=== PATIENT | male | born 1960 | race Hispanic/Latino ===

== ENCOUNTER 2017-10-09 18:03 | Inpatient (IN) | payer MEDICARE ==
[~2017-10-09] VITALS: Ht 165.1 cm; Wt 71.5 kg
[2017-10-09 18:58] LABS: BASOPHILS # (AUTO) 0.1 (0.0-0.1); BASOPHILS % 0.3 % (0.0-1.0); EOSINOPHILS # (AUTO) 0.1 (0.0-0.4); EOSINOPHILS % 0.3 % (0.0-6.0); HEMATOCRIT 28.6 % (38.2-49.6); HEMOGLOBIN 10.1 g/dL (14.0-18.0); LYMPHOCYTES # (AUTO) 1.4 (1.0-3.2); LYMPHOCYTES % 9.8 % (18.0-39.1); MEAN CORPUSCULAR HEMOGLOBIN 31.4 pg (28-32); MEAN CORPUSCULAR HGB CONC 35.3 g/dL (31-35); MEAN CORPUSCULAR VOLUME 88.8 fL (81-99); MONOCYTES # (AUTO) 1.4 (0.2-0.8); MONOCYTES % 9.7 % (4.4-11.3); NEUTROPHILS # (AUTO) 11.7 (2.1-6.9); NEUTROPHILS % 79.6 % (38.7-80.0); PLATELET COUNT 248 x10e3/uL (140-360); RED BLOOD COUNT 3.22 x10e6/uL (4.3-5.7); RED CELL DISTRIBUTION WIDTH 12.5 % (11.7-14.4)
[2017-10-09 19:19] LABS: ALBUMIN 3.2 g/dL (3.5-5.0); ALBUMIN/GLOBULIN RATIO 0.8 (0.8-2.0); ANION GAP 14.6 mmol/L (8-16); CALCIUM 8.7 mg/dL (8.4-10.2); CREATININE, SERUM 3.01 mg/dL (0.72-1.25); POTASSIUM 3.6 mmol/L (3.5-5.1)
[2017-10-09] MEDS ORDERED: BUPIVACAINE HCL 0.5% 10ML MPF VIAL INJ ONE (19:45)
[2017-10-09] MEDS ORDERED: VANCOMYCIN 500MG/NS 0.9% 100ML 100 ML IV STA (20:14)
[2017-10-09] MEDS ORDERED: DEXTROSE 50% SYRINGE 50 ML IV PRN (20:45)
[2017-10-09] MEDS: PIPERACILLIN/TAZO 2.25 GM 50 ML IV SCH (21:09)
[2017-10-09] MEDS: INSULIN REGULAR, HUMAN 100 UNIT/1 ML 3ML VIAL SQ SCH (21:09)
[2017-10-09 21:32] LABS: BODY FLUID COLOR RED; BODY FLUID TYPE SYNOVIAL
[2017-10-09 21:35] LABS: BODY FLUID APPEARANCE CLOUDY; RBC,BODY FLUID 2860 cells/uL; WBC,BODY FLUID 110 cells/uL
[2017-10-09 22:05] LABS: LYMPHOCYTES,BODY FLUID 14 %; MONO/MACROPHG,BODY FLUID 9 %; NEUTROPHILS,BODY FLUID 77 %
[2017-10-09] MEDS ORDERED: NIFEDIPINE10 MG PO (22:19)
[2017-10-09] MEDS ORDERED: TOPROL XL25 MG PO (22:19)
[2017-10-09] MEDS ORDERED: ASPIR 8181 MG (22:20)
[2017-10-09] MEDS ORDERED: ATORVASTATIN CA10 MG PO (22:20)
[2017-10-09] MEDS ORDERED: NOVALIN (22:24)
[2017-10-09] MEDS ORDERED: SODIUM CHLORIDE 0.9% 250ML 250 ML ONE (23:27)
[2017-10-09] MEDS ORDERED: VANCOMYCIN 1GM/NS 250 ML 250 ML ONE (23:28)
[2017-10-10] MEDS: MORPHINE SULFATE 2 MG/ML SYR IV PRN ×4 (04:38→20:38)
[2017-10-10] MEDS: ONDANSETRON HCL INJ 2 MG/ML VIAL IV PRN ×2 (04:38→20:38)
[2017-10-10 04:56] LABS: BASOPHILS # (AUTO) 0.1 (0.0-0.1); BASOPHILS % 0.4 % (0.0-1.0); EOSINOPHILS # (AUTO) 0.1 (0.0-0.4); EOSINOPHILS % 0.4 % (0.0-6.0); HEMATOCRIT 27.3 % (38.2-49.6); HEMOGLOBIN 9.8 g/dL (14.0-18.0); LYMPHOCYTES # (AUTO) 1.8 (1.0-3.2); LYMPHOCYTES % 12.4 % (18.0-39.1); MEAN CORPUSCULAR HEMOGLOBIN 31.5 pg (28-32); MEAN CORPUSCULAR HGB CONC 35.9 g/dL (31-35); MEAN CORPUSCULAR VOLUME 87.8 fL (81-99); MONOCYTES # (AUTO) 1.5 (0.2-0.8); MONOCYTES % 10.9 % (4.4-11.3); NEUTROPHILS # (AUTO) 10.7 (2.1-6.9); NEUTROPHILS % 75.6 % (38.7-80.0); PLATELET COUNT 235 x10e3/uL (140-360); RED BLOOD COUNT 3.11 x10e6/uL (4.3-5.7); RED CELL DISTRIBUTION WIDTH 12.4 % (11.7-14.4)
[2017-10-10 05:11] LABS: ALBUMIN 2.9 g/dL (3.5-5.0); ALBUMIN/GLOBULIN RATIO 0.7 (0.8-2.0); ANION GAP 14.5 mmol/L (8-16); CALCIUM 8.9 mg/dL (8.4-10.2); CREATININE, SERUM 2.94 mg/dL (0.72-1.25); POTASSIUM 3.5 mmol/L (3.5-5.1)
[2017-10-10] MEDS: INSULIN REGULAR, HUMAN 100 UNIT/1 ML 3ML VIAL SQ SCH ×4 (08:09→20:36)
[2017-10-10] MEDS: METOPROLOL SUCCINATE 25 MG TAB XL PO SCH (08:50)
[2017-10-10] MEDS: PIPERACILLIN/TAZO 2.25 GM 50 ML IV SCH ×2 (08:50→20:35)
[2017-10-10] MEDS: NIFEDIPINE 10 MG CAP PO SCH ×3 (08:50→20:36)
--- NOTE | 2017-10-10 09:11 | History and Physical ---
CHIEF COMPLAINT: Patient comes in with right elbow bursitis and tenderness and pain. HISTORY OF PRESENTING ILLNESS: This is Mr. Nick Maurice who has had elbow bursitis for the last 6 months, had it drained initially in the clinic and the patient did better for about 2 months, and yesterday the patient went out deep sea fishing and apparently hit the area and came into the emergency room with tenderness and increased erythema and pain on extension and flexion of the elbow. Was drained and admitted for IV antibiotics. PAST MEDICAL HISTORY: History of diabetes mellitus, history of diabetic retinopathy, history of hypertension, history of hyperlipidemia, and a history of blindness and retinopathy. SURGICAL HISTORY: Noncontributory. SOCIAL HISTORY: No ETOH. No IV drug abuse at this time. REVIEW OF SYSTEMS: Negative for chest pain. No shortness of breath. No nausea, vomiting, diarrhea. No constipation, no rectal bleeding. No hematochezia, no hematemesis either. PHYSICAL EXAMINATION GENERAL: Patient is alert and oriented x3. HEENT: Normocephalic, atraumatic. Patient is blind. ABDOMEN: Nontender, nondistended. LUNGS: Clear to auscultation. CARDIOVASCULAR: S1 and S2 normal. Regular rhythm. EXTREMITIES: Right elbow with tenderness and erythema. Swelling down after the drain. Extremities, no edema. LABORATORY VALUES: White count was 14,000, hemoglobin of 10.1 and hematocrit of 28.6. Chemistry: Sodium 130, BUN was 47, creatinine was 3.01, glucose of 208. Anion gap was 14.5. Patient's synovial fluid has been sent. WBC count was 110. PLAN: The patient has been started on Zosyn, and a gram of vancomycin has been given. A consult with Dr. Diop done. Will continue to monitor the patient. Also, an ID consult will be done for septic arthritis and bursitis. Further recommendations on clinical course. Will also wait for the cultures on the synovial fluid. Continue medications of home medicines and will also monitor his acute kidney injury. Patient has a baseline history of CKD. Will continue to monitor the patient's labs and also consult the 2 consultants. Job#: [id number] EV
[2017-10-10 16:33] VITALS: BP 134/73
[2017-10-10 16:35] VITALS: BP 134/73
[2017-10-10] MEDS: LINEZOLID 600 MG/D5W 300ML 300 ML IV SCH (16:44)
--- NOTE | 2017-10-10 17:48 | Consultation ---
DATE OF CONSULTATION: October 10, 2017 REASON FOR CONSULTATION: Right elbow cellulitis infection. HISTORY OF PRESENT ILLNESS: This patient is a 57-year-old gentleman with history of diabetes mellitus, history of retinopathy, hypertension, hyperlipidemia, chronic kidney disease. The patient comes in with redness and swelling of his elbow. The patient is denies any history of trauma, but he said he was on the boat fishing and it was a rough ride. He does not remember specific trauma. He is coming with redness and swelling of his elbow. Apparently it was aspirated and sent for cultures. I do not have the results. The patient is complaining of pain in the elbow. The patient is telling me that back in August he had inflammation and infection in his joints and he saw Dr. Parekh and he was given antibiotic with improvement. Now, he is coming with this new complaint. The patient is currently in the emergency room. He was seen and examined. at the bedside. PAST MEDICAL HISTORY: Diabetes mellitus, hypertension, chronic kidney disease, hyperlipidemia, blind and retinopathy. PAST SURGICAL HISTORY: Denies. ALLERGIES: NKA. SOCIAL HISTORY: Does not smoke, no drug abuse, no alcohol abuse. FAMILY HISTORY: Hypertension. REVIEW OF SYSTEMS: HEENT: There is no headache, visual changes or hearing changes. GI: There is no nausea and no vomiting. No diarrhea. CARDIAC: There is no arrhythmia. NEUROLOGIC: No seizure activity. SKIN: No rash. LABORATORY DATA: Reviewed. Gram stain of the fluid showed many WBCs but no organism. WBCs 110, RBCs 2860. His sodium 133, potassium 3.5 and creatinine 2.94. PHYSICAL EXAMINATION: GENERAL: Alert and oriented and does not seem to be in acute distress. VITAL SIGNS: Stable, currently afebrile. HEENT: Not icteric. NECK: Supple. No JVD. No thyromegaly. CHEST: Clear bilaterally. HEART: S1 and S2. No S3, S4 or murmur. ABDOMEN: Soft. Bowel sounds present. No tenderness. No hepatosplenomegaly. EXTREMITIES: No edema. On the right elbow, there is erythema and induration. IMPRESSION: 1. Bursitis. 2. Chronic kidney disease. 3. Hypertension. 4. Diabetes. RECOMMENDATIONS: Agree with Zosyn. Will add Zyvox in a patient with chronic kidney disease. Ortho evaluation has been ordered. Will follow. Job#: [id number] GH
[2017-10-10] MEDS ORDERED: SODIUM CHLORIDE 0.9% 250ML 250 ML ONE (20:14)
[2017-10-10 20:16] VITALS: BP 143/78
[2017-10-10] MEDS: ATORVASTATIN 10 MG TAB PO SCH (20:35)
[2017-10-11] VITALS (8 sets, daily range): BP systolic 132–156; BP diastolic 64–88
[2017-10-11] MEDS: ONDANSETRON HCL INJ 2 MG/ML VIAL IV PRN ×3 (00:33→09:05)
[2017-10-11] MEDS: MORPHINE SULFATE 2 MG/ML SYR IV PRN ×2 (00:33→04:31)
[2017-10-11] MEDS: LINEZOLID 600 MG/D5W 300ML 300 ML IV SCH ×2 (04:30→16:41)
[2017-10-11 05:59] LABS: BASOPHILS % 0.3 % (0.0-1.0); EOSINOPHILS % 0.2 % (0.0-6.0); HEMATOCRIT 25.2 % (38.2-49.6); HEMOGLOBIN 8.9 g/dL (14.0-18.0); LYMPHOCYTES # (AUTO) 1.3 (1.0-3.2); LYMPHOCYTES % 9.2 % (18.0-39.1); MEAN CORPUSCULAR HEMOGLOBIN 31.6 pg (28-32); MEAN CORPUSCULAR HGB CONC 35.3 g/dL (31-35); MEAN CORPUSCULAR VOLUME 89.4 fL (81-99); MONOCYTES # (AUTO) 1.7 (0.2-0.8); MONOCYTES % 11.6 % (4.4-11.3); NEUTROPHILS # (AUTO) 11.2 (2.1-6.9); NEUTROPHILS % 78.1 % (38.7-80.0); PLATELET COUNT 225 x10e3/uL (140-360); RED BLOOD COUNT 2.82 x10e6/uL (4.3-5.7)
[2017-10-11 06:22] LABS: ANION GAP 14.8 mmol/L (8-16); CALCIUM 8.6 mg/dL (8.4-10.2); CREATININE, SERUM 3.44 mg/dL (0.72-1.25); POTASSIUM 3.8 mmol/L (3.5-5.1)
[2017-10-11] MEDS ORDERED: ACETAMINOPHEN 325 MG TAB PO PRN (06:45)
[2017-10-11] MEDS ORDERED: MORPHINE SULFATE INJ 4 MG/ML INJ IV PRN ×2 (07:00→08:30)
[2017-10-11] MEDS: HYDROMORPHONE 2MG/ML 2 MG/ML ML IV PRN (07:27)
[2017-10-11] MEDS: INSULIN REGULAR, HUMAN 100 UNIT/1 ML 3ML VIAL SQ SCH ×4 (07:30→21:06)
[2017-10-11 07:34] LABS: LYMPHOCYTES % (MANUAL) 4 % (19-48); MONOCYTES % (MANUAL) 12 % (3.4-9.0); NEUTROPHILS % (MANUAL) 83 % (40-74); PLATELET MORPHOLOGY COMMENT NORMAL
[2017-10-11 07:35] LABS: PLATELET ESTIMATE ADEQUATE; RBC MORPHOLOGY COMMENT NORMAL
[2017-10-11 07:36] LABS: ANISOCYTOSIS SLIGHT; HYPOCHROMASIA SLIG
[2017-10-11] MEDS: PIPERACILLIN/TAZO 2.25 GM 50 ML IV SCH ×2 (08:53→21:05)
[2017-10-11] MEDS: METOPROLOL SUCCINATE 25 MG TAB XL PO SCH (08:53)
[2017-10-11] MEDS: NIFEDIPINE 10 MG CAP PO SCH ×3 (08:53→21:04)
--- NOTE | 2017-10-11 12:28 | Diagnostic Imaging Report ---
TECHNIQUE: Magnetic resonance imaging of the RIGHT ELBOW was performed WITHOUT injected contrast. HISTORY: Pain COMPARISON: None available. FINDINGS: Ligaments and tendons: The medial and lateral collateral ligament complexes are intact. Tendinosis of the common extensor and flexor origins with thickening, no tear. Insertional tendinosis of the triceps tendon with olecranon enthesophyte. The distal biceps tendon, and brachialis tendons are intact. Ulnar nerve: Normal, and in groove. Bone and bone marrow: Mild bone marrow edema within the posterior olecranon. Mild T1 signal change axial image 17. No acute fracture. Articular cartilage: No focal lesions are seen. Joint effusion, likely reactive. Soft tissues: Complex olecranon bursitis with surrounding edema and inflammation. IMPRESSION: Olecranon bursitis, likely infected with surrounding cellulitis. Marrow edema and mild T1 signal change in the olecranon may reflect developing osteomyelitis. Signed by: Dr. Favio Car M.D. on 10/11/2017 12:25 PM
--- NOTE | 2017-10-11 20:12 | Progress Note ---
DATE: October 11, 2017 Mr. Woodward is doing better. There are no new complaints. His laboratory data reviewed. An MRI of the elbow shows there is bursitis, cellulitis and osteomyelitis. Discussed with ortho that he needs 6-8 weeks or IV antibiotics. He has chronic kidney disease. Will consult renal. Will keep him on same antibiotics. Will see about outpatient IV antibiotics and will follow with you. Job#: [id number]
[2017-10-11] MEDS: ATORVASTATIN 10 MG TAB PO SCH (21:04)
[2017-10-12] VITALS (8 sets, daily range): BP systolic 133–162; BP diastolic 59–85
[2017-10-12] MEDS: ONDANSETRON HCL INJ 2 MG/ML VIAL IV PRN ×2 (04:45→21:46)
[2017-10-12] MEDS: HYDROMORPHONE 2MG/ML 2 MG/ML ML IV PRN ×2 (04:47→21:48)
[2017-10-12] MEDS: LINEZOLID 600 MG/D5W 300ML 300 ML IV SCH ×2 (04:51→16:51)
[2017-10-12 05:36] LABS: INR 1.32; PROTHROMBIN TIME 15.4 seconds (11.9-14.5)
[2017-10-12 05:37] LABS: PARTIAL THROMBOPLASTIN TIME 40.1 seconds (23.8-35.5)
[2017-10-12] MEDS: INSULIN REGULAR, HUMAN 100 UNIT/1 ML 3ML VIAL SQ SCH ×5 (07:30→21:28)
[2017-10-12] MEDS: PIPERACILLIN/TAZO 2.25 GM 50 ML IV SCH ×2 (09:17→21:27)
[2017-10-12] MEDS: METOPROLOL SUCCINATE 25 MG TAB XL PO SCH (09:17)
[2017-10-12] MEDS: NIFEDIPINE 10 MG CAP PO SCH ×3 (09:17→21:26)
--- NOTE | 2017-10-12 12:22 | Diagnostic Imaging Report ---
PROCEDURE:US GUIDANCE FOR VASCULAR ACCESS COMPARISON:None. INDICATIONS:Central Line Placement FINDINGS:Ultrasound evaluation of potential access sites was performed. After successfully identifying a patent vessel, US guidance was used to puncture the vein. A permanent recording was created for the patient record. CONCLUSION:Successful IV access by Ultrasound guidance. Steven Robledo M.D. Dictated by: Steven Robledo M.D. on 10/12/2017 at 12:28 Electronically approved by: Steven Robledo M.D. on 10/12/2017 at 12:28
--- NOTE | 2017-10-12 14:19 | Diagnostic Imaging Report ---
PROCEDURE:NON-TUNNELLED CVC CATH PLACMNT COMPARISON:None. Preprocedure diagnosis: Bursitis, need for intravenous antibiotics Post procedure diagnosis: Bursitis, need for intravenous antibiotics COMPLICATIONS: None Sedation/anesthesia: None Additional medications: Lidocaine 1% local anesthesia Blood products administered: None Specimens: None Implants/grafts: 7 [place] 16 cm triple lumen central venous catheter BLOOD LOSS: Minimal Condition at completion procedure: Stable Disposition: Return to floor PROCEDURE: Informed consent was obtained and documented in the medical record after discussion of risks and benefits. Preliminary sonographic evaluation of the right neck confirmed patency of the internal jugular vein, evidenced by compressibility. The right neck was then prepped and draped in standard sterile fashion. 1% lidocaine was infiltrated into the skin and subcutaneous tissues for local anesthesia. Under continuous sonographic guidance an 18 gauge single wall needle was used to access the right internal jugular vein. A permanent sonographic image was stored in the medical record. A 0.035 inch wire was advanced into the inferior vena cava under fluoroscopic guidance. The needle was then exchanged for a 7 [place] 16 cm triple lumen central venous catheter using standard Seldinger technique. The catheter was advanced to a depth of 15 cm. The wire was removed and the catheter tip was positioned at the superior cavoatrial junction. Each lumen showed adequate bidirectional flow and was flushed with sterile saline. The catheter was secured to the skin with monofilament nylon suture and a sterile dressing was applied. The patient tolerated the procedure well without immediate complication. Findings: Patent right internal jugular vein. CONCLUSION: Successful placement of a 7 [place] 16 cm triple lumen central venous catheter via right internal jugular approach. Dictated by: Bang Soler M.D. on 10/12/2017 at 14:24 Electronically approved by: Bang Soler M.D. on 10/12/2017 at 14:24
--- NOTE | 2017-10-12 14:19 | Diagnostic Imaging Report ---
PROCEDURE:NON-TUNNELLED CVC CATH PLACMNT COMPARISON:None. Preprocedure diagnosis: Bursitis, need for intravenous antibiotics Post procedure diagnosis: Bursitis, need for intravenous antibiotics COMPLICATIONS: None Sedation/anesthesia: None Additional medications: Lidocaine 1% local anesthesia Blood products administered: None Specimens: None Implants/grafts: 7 [place] 16 cm triple lumen central venous catheter BLOOD LOSS: Minimal Condition at completion procedure: Stable Disposition: Return to floor PROCEDURE: Informed consent was obtained and documented in the medical record after discussion of risks and benefits. Preliminary sonographic evaluation of the right neck confirmed patency of the internal jugular vein, evidenced by compressibility. The right neck was then prepped and draped in standard sterile fashion. 1% lidocaine was infiltrated into the skin and subcutaneous tissues for local anesthesia. Under continuous sonographic guidance an 18 gauge single wall needle was used to access the right internal jugular vein. A permanent sonographic image was stored in the medical record. A 0.035 inch wire was advanced into the inferior vena cava under fluoroscopic guidance. The needle was then exchanged for a 7 [place] 16 cm triple lumen central venous catheter using standard Seldinger technique. The catheter was advanced to a depth of 15 cm. The wire was removed and the catheter tip was positioned at the superior cavoatrial junction. Each lumen showed adequate bidirectional flow and was flushed with sterile saline. The catheter was secured to the skin with monofilament nylon suture and a sterile dressing was applied. The patient tolerated the procedure well without immediate complication. Findings: Patent right internal jugular vein. CONCLUSION: Successful placement of a 7 [place] 16 cm triple lumen central venous catheter via right internal jugular approach. Dictated by: Bang Soler M.D. on 10/12/2017 at 14:24 Electronically approved by: Bang Soler M.D. on 10/12/2017 at 14:24
[2017-10-12 18:36] LABS: % IRON SATURATION 11 % (15-50); IRON 19 ug/dL (65-175); TOTAL IRON BINDING CAPACITY 176 ug/dL (261-478); TRANSFERRIN 126 mg/dL (174-364)
[2017-10-12] MEDS: ATORVASTATIN 10 MG TAB PO SCH (21:26)
[2017-10-13] VITALS (8 sets, daily range): BP systolic 132–185; BP diastolic 60–86
[2017-10-13] MEDS: ONDANSETRON HCL INJ 2 MG/ML VIAL IV PRN ×4 (02:20→22:19)
[2017-10-13] MEDS: HYDROMORPHONE 2MG/ML 2 MG/ML ML IV PRN ×4 (02:22→22:19)
[2017-10-13] MEDS: LINEZOLID 600 MG/D5W 300ML 300 ML IV SCH ×2 (04:35→16:29)
[2017-10-13 05:19] LABS: BASOPHILS # (AUTO) 0.1 (0.0-0.1); BASOPHILS % 0.4 % (0.0-1.0); EOSINOPHILS # (AUTO) 0.1 (0.0-0.4); EOSINOPHILS % 1.1 % (0.0-6.0); HEMATOCRIT 22.9 % (38.2-49.6); HEMOGLOBIN 8.2 g/dL (14.0-18.0); LYMPHOCYTES # (AUTO) 1.8 (1.0-3.2); LYMPHOCYTES % 14.1 % (18.0-39.1); MEAN CORPUSCULAR HEMOGLOBIN 31.3 pg (28-32); MEAN CORPUSCULAR HGB CONC 35.8 g/dL (31-35); MEAN CORPUSCULAR VOLUME 87.4 fL (81-99); MONOCYTES # (AUTO) 1.3 (0.2-0.8); MONOCYTES % 10.2 % (4.4-11.3); NEUTROPHILS # (AUTO) 9.4 (2.1-6.9); PLATELET COUNT 275 x10e3/uL (140-360); RED BLOOD COUNT 2.62 x10e6/uL (4.3-5.7)
[2017-10-13 05:54] LABS: ANION GAP 17.7 mmol/L (8-16); CALCIUM 8.7 mg/dL (8.4-10.2); CREATININE, SERUM 4.16 mg/dL (0.72-1.25); POTASSIUM 3.7 mmol/L (3.5-5.1)
[2017-10-13] MEDS: INSULIN REGULAR, HUMAN 100 UNIT/1 ML 3ML VIAL SQ SCH ×4 (07:30→22:12)
[2017-10-13] MEDS: METOPROLOL SUCCINATE 25 MG TAB XL PO SCH (08:16)
[2017-10-13] MEDS: NIFEDIPINE 10 MG CAP PO SCH ×3 (08:16→22:02)
[2017-10-13] MEDS: PIPERACILLIN/TAZO 2.25 GM 50 ML IV SCH ×2 (08:16→22:02)
[2017-10-13 12:29] LABS: % IRON SATURATION 12 % (15-50); IRON 20 ug/dL (65-175); TOTAL IRON BINDING CAPACITY 162 ug/dL (261-478); TRANSFERRIN 116 mg/dL (174-364)
--- NOTE | 2017-10-13 12:39 | Consultation ---
DATE OF CONSULTATION: RENAL CONSULT HISTORY OF PRESENT ILLNESS: This is a 57-year-old male with chronic kidney disease stage 4, who was admitted with right elbow bursitis that he has been having for 6 months. The patient was admitted with increased edema, pain and tenderness. He was admitted for IV antibiotics. PAST MEDICAL HISTORY: Includes 1. Hyperlipidemia. 2. Type 2 diabetes mellitus. 3. Hypertension. 4. Diabetic retinopathy. 5. CKD stage 4. 6. Blindness. 7. Retinopathy. SURGICAL HISTORY: Noncontributory. SOCIAL HISTORY: No smoking, no alcohol, no drugs. REVIEW OF SYSTEMS: No nausea, no vomiting, no constipation, no diarrhea, no shortness of breath, no chest pain. No blood in the stool, no blood in the urine. No sensory loss, no motor loss. No skin cancer. PHYSICAL EXAMINATION GENERAL: Alert, following commands. HEENT: Pupils equal, reactive to light and accommodation. NECK: No JVD, no bruit. LUNGS: No rhonchi, no rales. HEART: Regular rate and rhythm. No S3, no S4. ABDOMEN: Nontender, nondistended. No hepatosplenomegaly. EXTREMITIES: No clubbing, no cyanosis, no edema. Right elbow positive for swelling. VITAL SIGNS: Afebrile. Blood pressure 132/60. LABS: White count 12.7, hemoglobin 8.2 down from 8.9 down from 10.1, platelets 275. Sodium 137, potassium 3.7. __Creatinine 4.16. Creatinine of 3.01, 2.94, 3.44 and now 4.66. He is on nifedipine, metoprolol, Zosyn, linezolid, Zofran, atorvastatin. ASSESSMENT AND PLAN 1. Zopxw-[id number]-[id number] kidney disease. This is most likely secondary to infection and acute tubular necrosis. For now will check urine eosinophil and fraction excretion of sodium. Will also check UA and renal ultrasound. The patient has history of chronic kidney disease stage 4, and they stated that he would want to go home. I will discuss it with Dr. Parekh and probably okay to discharge with followup as outpatient but will have renal ultrasound and fraction excretion of sodium ordered now. The patient will be following up quickly within 1 to 2 weeks. 2. Anemia. The patient has been having worsening anemia since he was admitted. Will check his iron studies and check a stool guaiac. 3. Most likely diabetic nephropathy with acute worsening secondary to infection. Thank you for the consult. Job#: [id number] EV
[2017-10-13 13:45] LABS: CLARITY,URINE SL CLOUDY (CLEAR); COLOR,URINE YELLOW (YELLOW)
[2017-10-13 13:46] LABS: BILIRUBIN,URINE NEGATIVE (NEGATIVE); KETONES,URINE NEGATIVE (NEGATIVE); LEUKOCYTE ESTERASE ,URINE NEGATIVE (NEGATIVE); NITRITE,URINE NEGATIVE (NEGATIVE); PROTEIN,URINE DIPSTICK 3+ (NEGATIVE); URINE UROBILINOGEN 0.2 mg/dL (0.2 - 1)
[2017-10-13 13:57] LABS: SODIUM,URINE 42 mmol/L
[2017-10-13 13:59] LABS: BACTERIA,URINE MODERATE /HPF
[2017-10-13 14:00] LABS: EPITHELIAL CELLS,URINE FEW /LPF; YEAST,URINE FEW
[2017-10-13 14:17] LABS: EOSINOPHIL SMEAR,URINE NONE SEEN (NONE SEEN)
--- NOTE | 2017-10-13 17:49 | Diagnostic Imaging Report ---
PROCEDURE:US RETROPERITONEAL ( KIDNEY ). COMPARISON:None. INDICATIONS:CKD TECHNIQUE: Eller-scale and color sonographic images of the bilateral kidneys and bladder where obtained in transverse and longitudinal planes. FINDINGS: RIGHT KIDNEY: 11.5 x 6.3 x 4.7 cm, cortex 2.4 cm Cysts: None Solid masses: None Stones: None Hydronephrosis: None Echogenicity: Increased LEFT KIDNEY: 11.8 x 6.3 x 5.3 cm, cortex 1.9 cm Cysts: None Solid masses: None Stones: None Hydronephrosis: None Echogenicity: Increased Bladder: Both ureteral jets visualized. Borderline thickened bladder wall. Prostate: 4.8 x 3.5 x 2.7 cm (24.1 cc). Additional Findings: Punctate echogenic shadowing calcification along the posterior right hepatic lobe, likely a calcified granuloma. CONCLUSION: Increased renal echogenicity in keeping with medical renal disease. Dictated by: Diego Darnell M.D. on 10/13/2017 at 17:54 Electronically approved by: Diego Darnell M.D. on 10/13/2017 at 17:54
[2017-10-13] MEDS: ATORVASTATIN 10 MG TAB PO SCH (22:02)
[2017-10-14] VITALS: BP 173/80
[2017-10-14 04:00] VITALS: BP 158/74
[2017-10-14] MEDS: LINEZOLID 600 MG/D5W 300ML 300 ML IV SCH ×2 (04:46→16:11)
[2017-10-14] MEDS: ONDANSETRON HCL INJ 2 MG/ML VIAL IV PRN ×3 (04:47→20:56)
[2017-10-14] MEDS: HYDROMORPHONE 2MG/ML 2 MG/ML ML IV PRN ×3 (04:48→20:56)
[2017-10-14 05:01] LABS: BASOPHILS # (AUTO) 0.1 (0.0-0.1); BASOPHILS % 0.5 % (0.0-1.0); EOSINOPHILS # (AUTO) 0.2 (0.0-0.4); EOSINOPHILS % 1.5 % (0.0-6.0); HEMOGLOBIN 8.5 g/dL (14.0-18.0); LYMPHOCYTES # (AUTO) 1.1 (1.0-3.2); LYMPHOCYTES % 10.4 % (18.0-39.1); MEAN CORPUSCULAR HEMOGLOBIN 31.4 pg (28-32); MEAN CORPUSCULAR HGB CONC 35.4 g/dL (31-35); MEAN CORPUSCULAR VOLUME 88.6 fL (81-99); MONOCYTES % 9.6 % (4.4-11.3); NEUTROPHILS # (AUTO) 8.4 (2.1-6.9); NEUTROPHILS % 77.6 % (38.7-80.0); PLATELET COUNT 270 x10e3/uL (140-360); RED BLOOD COUNT 2.71 x10e6/uL (4.3-5.7); RED CELL DISTRIBUTION WIDTH 11.9 % (11.7-14.4)
[2017-10-14 05:20] LABS: ANION GAP 15.8 mmol/L (8-16); CREATININE, SERUM 3.87 mg/dL (0.72-1.25); POTASSIUM 3.8 mmol/L (3.5-5.1)
[2017-10-14] MEDS: METOPROLOL SUCCINATE 25 MG TAB XL PO SCH (07:56)
[2017-10-14] MEDS: INSULIN REGULAR, HUMAN 100 UNIT/1 ML 3ML VIAL SQ SCH ×4 (07:56→20:57)
[2017-10-14] MEDS: PIPERACILLIN/TAZO 2.25 GM 50 ML IV SCH ×2 (07:56→20:56)
[2017-10-14] MEDS: NIFEDIPINE 10 MG CAP PO SCH ×3 (07:56→20:56)
[2017-10-14 09:23] VITALS: BP 182/84
[2017-10-14 20:00] VITALS: BP 181/79
[2017-10-14] MEDS: ATORVASTATIN 10 MG TAB PO SCH (20:56)
[2017-10-14 21:00] VITALS: BP 181/79
[2017-10-15 00:08] VITALS: BP 166/78
[2017-10-15] MEDS: ONDANSETRON HCL INJ 2 MG/ML VIAL IV PRN (03:55)
[2017-10-15] MEDS: HYDROMORPHONE 2MG/ML 2 MG/ML ML IV PRN ×2 (03:55→10:30)
[2017-10-15 04:00] VITALS: BP 179/74
[2017-10-15] MEDS: LINEZOLID 600 MG/D5W 300ML 300 ML IV SCH ×2 (04:52→17:00)
[2017-10-15 04:57] LABS: BASOPHILS # (AUTO) 0.1 (0.0-0.1); BASOPHILS % 0.5 % (0.0-1.0); EOSINOPHILS # (AUTO) 0.2 (0.0-0.4); EOSINOPHILS % 1.9 % (0.0-6.0); HEMATOCRIT 22.6 % (38.2-49.6); HEMOGLOBIN 8.1 g/dL (14.0-18.0); LYMPHOCYTES # (AUTO) 1.5 (1.0-3.2); LYMPHOCYTES % 13.6 % (18.0-39.1); MEAN CORPUSCULAR HEMOGLOBIN 31.3 pg (28-32); MEAN CORPUSCULAR HGB CONC 35.8 g/dL (31-35); MEAN CORPUSCULAR VOLUME 87.3 fL (81-99); MONOCYTES % 9.4 % (4.4-11.3); NEUTROPHILS % 74.2 % (38.7-80.0); PLATELET COUNT 256 x10e3/uL (140-360); RED BLOOD COUNT 2.59 x10e6/uL (4.3-5.7); RED CELL DISTRIBUTION WIDTH 11.9 % (11.7-14.4)
[2017-10-15 05:16] LABS: ANION GAP 16.6 mmol/L (8-16); CALCIUM 8.8 mg/dL (8.4-10.2); CREATININE, SERUM 4.15 mg/dL (0.72-1.25); POTASSIUM 3.6 mmol/L (3.5-5.1)
[2017-10-15] MEDS: INSULIN REGULAR, HUMAN 100 UNIT/1 ML 3ML VIAL SQ SCH ×3 (07:30→16:24)
[2017-10-15 08:00] VITALS: BP 179/74
[2017-10-15 08:28] VITALS: BP 185/91
[2017-10-15] MEDS ORDERED: METOPROLOL SUCCINATE 25 MG TAB XL PO SCH (09:00)
[2017-10-15] MEDS: PIPERACILLIN/TAZO 2.25 GM 50 ML IV SCH (09:00)
[2017-10-15] MEDS ORDERED: METOPROLOL SUCCINATE 50 MG TAB XL PO SCH (09:00)
[2017-10-15] MEDS: NIFEDIPINE 10 MG CAP PO SCH ×2 (09:00→15:00)
[2017-10-15 12:07] VITALS: BP 154/77
[2017-10-15] MEDS ORDERED: VANCOMYCIN 1GM/NS 250 ML 250 ML IV ONE (15:30)
[2017-10-15 17:07] VITALS: BP 161/83
[2017-10-15] MEDS ORDERED: NIFEDIPINE10 MG PO ×2 (17:15→17:16)
[2017-10-15] MEDS ORDERED: TAMSULOSIN HCL 0.4 MG CAP PO SCH (21:00)
== END 2017-10-15 18:00 | disposition home or self-care (01) | DRG 557 ==
LOC: ER 18:03 → ERHOLD 21:08 → MED/SURG2 10-10 18:53
PROVIDERS: ADMIT Family Medicine; ATTEND Family Medicine
PROC: 0R9L3ZX Drainage of Right Elbow Joint, Percutaneous Approach, Diagnostic (ICD-10-PCS; principal; 2017-10-09)
PROC: 02HV33Z Insertion of Infusion Device into Superior Vena Cava, Percutaneous Approach (ICD-10-PCS; 2017-10-12)
DX: M71.121 Other infective bursitis, right elbow (principal); N17.0 Acute kidney failure with tubular necrosis; L03.113 Cellulitis of right upper limb; M86.8X2 Other osteomyelitis, upper arm; N18.4 Chronic kidney disease, stage 4 (severe); I12.9 Hypertensive chronic kidney disease with stage 1 through stage 4 chronic kidney disease, or unspecified chronic kidney disease; E11.22 Type 2 diabetes mellitus with diabetic chronic kidney disease; E78.5 Hyperlipidemia, unspecified; H54.8 Legal blindness, as defined in USA; I25.10 Atherosclerotic heart disease of native coronary artery without angina pectoris; D64.9 Anemia, unspecified; E11.69 Type 2 diabetes mellitus with other specified complication; B19.20 Unspecified viral hepatitis C without hepatic coma; E11.319 Type 2 diabetes mellitus with unspecified diabetic retinopathy without macular edema; E11.21 Type 2 diabetes mellitus with diabetic nephropathy
CPT/HCPCS: 36415; 36556; 74470; 76770; 76937; 77001; 80048; 80053; 81001; 81015; 82270; 82570; 82948; 83540; 83605; 84165; 84300; 84466; 85025; 85610; 85651; 85730; 86140; 87040; 87070; 87205; 89051; 93005; 96372; 99284; J2020; J2270; J2405; J2543; J3370; J7050

== ENCOUNTER → 2017-11-11 | Outpatient (CLI) | payer MEDICARE ==
[~2017-11-11] MED LIST: ASPIR 8181 MG; ATORVASTATIN CA10 MG PO; NIFEDIPINE10 MG PO; NOVALIN; TOPROL XL25 MG PO
--- NOTE | 2017-11-12 08:01 | Diagnostic Imaging Report ---
Labeled WBC Study Reason for exam: 57 M with idiopathic gout in the right elbow. Redness and swelling of the right elbow but no open wound. Comparison: MRI right elbow 10/11/2017 Report: The patient's own white blood cells were labeled with [id number] HMPAO 25.9 mCi by a commercial radiopharmacy. Images of the elbows were obtained at 2 hours and 7 hours post administration of the labeled white blood cells. Focal increased tracer is seen superficially overlying the olecranon process of the right elbow. No increased tracer uptake is seen within the right elbow joint or adjacent bone. IMPRESSION: Scan findings are compatible with inflammation of the olecranon bursa of the right elbow. No scan evidence of osteomyelitis or inflammation/septic arthritis of the right elbow joint. Signed by: Dr. Yokasta Dotson M.D. on 11/12/2017 7:58 AM
== END ==
LOC: NM 07:57
PROVIDERS: ATTEND Specialist
DX: M10.021 Idiopathic gout, right elbow (principal)
CPT/HCPCS: 78806; A9521; A9556; A9570